=== PATIENT | male | born 1955 | race Caucasian/White ===

== ENCOUNTER 2017-05-06 12:11 | Emergency (ER) | payer MEDICAID ==
[~2017-05-06] VITALS: Ht 175.2 cm; Wt 95.3 kg
[~2017-05-06 12:11] MED LIST: CEPHALEXIN500 M1 PO; LISINOPRIL20 MG PO
[2017-05-06] MEDS ORDERED: PREDNISONE50 MG PO (17:56)
== END 2017-05-06 18:03 | disposition home or self-care (01) ==
LOC: ED 12:11
DX: S16.1XXA Strain of muscle, fascia and tendon at neck level, initial encounter (principal); M54.10 Radiculopathy, site unspecified; M54.2 Cervicalgia; M54.5 Low back pain; F17.200 Nicotine dependence, unspecified, uncomplicated; Z79.899 Other long term (current) drug therapy; W54.1XXA Struck by dog, initial encounter; Y93.89 Activity, other specified; Y92.89 Other specified places as the place of occurrence of the external cause; Y99.8 Other external cause status

== ENCOUNTER → 2017-07-03 | Outpatient (CLI) | payer OTHER ==
[~2017-07-03] MED LIST changes: +PREDNISONE50 MG PO
[2017-07-03 10:50] LABS: HEMATOCRIT 48.6 % (42.0-52.0); HEMOGLOBIN 16.4 g/dl (14.0-18.0); MEAN CELL VOLUME 85.7 fl (80.0-94.0); MEAN CORPUSCULAR HGB 28.9 pg (27.0-31.0); MEAN CORPUSCULAR HGB CONC 33.7 g/dl (33.0-37.0); MEAN PLATELET VOLUME 9.9 fl (9.6-12.3); RED BLOOD COUNT 5.67 10*6/uL (4.50-5.90); RED CELL DISTRI WIDTH 14.5 % (0-14.5); WHITE BLOOD COUNT 7.9 10*3/uL (4.8-10.8)
[2017-07-03 11:17] LABS: BILIRUBIN, TOTAL 0.7 mg/dl (0.2-1.0); CHLORIDE 91 mmol/L (98-107); SODIUM 128 mmol/L (136-145); TOTAL PROTEIN 7.3 gm/dL (6.4-8.2)
[2017-07-03 11:24] LABS: ALBUMIN 3.7 gm/dl (3.1-4.5); ALKALINE PHOSPHATASE 78 U/L (45-117); BUN 5 mg/dl (7-24); CARBON DIOXIDE 29 mmol/L (21-32); CHOLESTEROL 155 mg/dL (<200); EST GLOM FILT AFRICAN AMERICAN > 60 ml/min; GLUCOSE 90 mg/dL (65-99); HDL CHOLESTEROL 62 mg/dl (40-60); LDL CHOLESTEROL 79 mg/dL (9-159); SGOT/AST 29 IU/L (3-35); SGPT/ALT 28 U/L (12-78); TRIGLYCERIDES 71 mg/dl (<150); VLDL CHOLESTEROL 14 mg/dL (6-40)
== END | disposition home or self-care (01) ==
LOC: LAB 10:03
PROVIDERS: Family Medicine
DX: Z12.5 Encounter for screening for malignant neoplasm of prostate (principal); Z01.818 Encounter for other preprocedural examination; M54.2 Cervicalgia; I10 Essential (primary) hypertension; E78.00 Pure hypercholesterolemia, unspecified; E55.9 Vitamin D deficiency, unspecified; F17.200 Nicotine dependence, unspecified, uncomplicated

== ENCOUNTER → 2017-07-11 | Outpatient (CLI) | payer OTHER | END | disposition home or self-care (01) | LOC: LAB 11:08 | DX: E87.1 Hypo-osmolality and hyponatremia (principal); E87.5 Hyperkalemia ==

== ENCOUNTER → 2017-07-23 | Outpatient (CLI) | payer OTHER ==
[2017-07-23 11:42] LABS: ALBUMIN 3.7 gm/dl (3.1-4.5); BUN 7 mg/dl (7-24); CHLORIDE 94 mmol/L (98-107); CREATININE 0.82 mg/dL (0.70-1.30); POTASSIUM 4.3 mmol/L (3.5-5.1); SGOT/AST 19 IU/L (3-35); SGPT/ALT 26 U/L (12-78); SODIUM 127 mmol/L (136-145)
[2017-07-23 11:44] LABS: ALKALINE PHOSPHATASE 76 U/L (45-117); TOTAL PROTEIN 7.3 gm/dL (6.4-8.2)
== END | disposition home or self-care (01) ==
LOC: LAB 10:50
PROVIDERS: Family Medicine
DX: E87.1 Hypo-osmolality and hyponatremia (principal)

== ENCOUNTER → 2017-07-30 | Outpatient (CLI) | payer OTHER ==
[2017-07-30 12:01] LABS: BUN 6 mg/dl (7-24); CHLORIDE 89 mmol/L (98-107); CREATININE 0.78 mg/dL (0.70-1.30); POTASSIUM 4.5 mmol/L (3.5-5.1); SODIUM 125 mmol/L (136-145)
== END | disposition home or self-care (01) ==
LOC: LAB 11:10
PROVIDERS: Family Medicine
DX: E87.1 Hypo-osmolality and hyponatremia (principal)

== ENCOUNTER → 2017-08-14 | Outpatient (CLI) | payer OTHER ==
[2017-08-14 13:25] LABS: BILIRUBIN NEGATIVE (NEGATIVE); BLOOD NEGATIVE (NEGATIVE); CLARITY SL CLOUDY (CLEAR); COLOR YELLOW (YELLOW); GLUCOSE NEGATIVE (NEGATIVE); KETONE TRACE (NEGATIVE); LEUKO ESTERASE NEGATIVE (NEGATIVE); NITRITE NEGATIVE (NEGATIVE); PH 5.5 (5.0-9.0); UROBILINOGEN 0.2 E.U./dl (0.2-1.0)
[2017-08-14 13:41] LABS: BUN 8 mg/dl (7-24); CHLORIDE 92 mmol/L (98-107); CREATININE 0.89 mg/dL (0.70-1.30); POTASSIUM 4.7 mmol/L (3.5-5.1); SODIUM 130 mmol/L (136-145); URIC ACID 3.1 mg/dL (3.5-7.2)
[2017-08-14 13:47] LABS: BACTERIA TRACE
[2017-08-14 13:48] LABS: ETHYL ALCOHOL < 3.0 mg/dl (<3)
== END | disposition home or self-care (01) ==
LOC: LAB 12:35
PROVIDERS: Internal Medicine Nephrology
DX: E87.1 Hypo-osmolality and hyponatremia (principal)

== ENCOUNTER → 2017-08-26 | Outpatient (CLI) | payer OTHER ==
[2017-08-26 12:18] LABS: ALBUMIN 3.8 gm/dl (3.1-4.5); BUN 4 mg/dl (7-24); CHLORIDE 90 mmol/L (98-107); CREATININE 0.83 mg/dL (0.70-1.30); PHOSPHOROUS 3.2 mg/dL (2.5-4.9); POTASSIUM 4.5 mmol/L (3.5-5.1); SODIUM 127 mmol/L (136-145)
== END | disposition home or self-care (01) ==
LOC: LAB 11:24
PROVIDERS: Internal Medicine Nephrology
DX: E87.1 Hypo-osmolality and hyponatremia (principal)

== ENCOUNTER → 2017-09-08 | Outpatient (CLI) | payer OTHER ==
[2017-09-08 12:59] LABS: ALBUMIN 3.8 gm/dl (3.1-4.5); BUN 5 mg/dl (7-24); CHLORIDE 90 mmol/L (98-107); CREATININE 0.73 mg/dL (0.70-1.30); PHOSPHOROUS 3.4 mg/dL (2.5-4.9); POTASSIUM 4.2 mmol/L (3.5-5.1); SODIUM 126 mmol/L (136-145)
== END | disposition home or self-care (01) ==
LOC: LAB 11:58
PROVIDERS: Internal Medicine Nephrology
DX: E87.1 Hypo-osmolality and hyponatremia (principal)

== ENCOUNTER → 2017-09-18 | Outpatient (CLI) | payer OTHER ==
[2017-09-18 13:08] LABS: ALBUMIN 3.9 gm/dl (3.1-4.5); BUN 6 mg/dl (7-24); CHLORIDE 92 mmol/L (98-107); CREATININE 0.81 mg/dL (0.70-1.30); PHOSPHOROUS 3.6 mg/dL (2.5-4.9); POTASSIUM 4.4 mmol/L (3.5-5.1); SODIUM 129 mmol/L (136-145)
== END | disposition home or self-care (01) ==
LOC: LAB 12:18
PROVIDERS: Internal Medicine Nephrology
DX: E87.1 Hypo-osmolality and hyponatremia (principal)

== ENCOUNTER → 2017-09-23 | Outpatient (CLI) | payer OTHER ==
[2017-09-23 10:10] LABS: ALBUMIN 3.7 gm/dl (3.1-4.5); BUN 5 mg/dl (7-24); CHLORIDE 92 mmol/L (98-107); CREATININE 0.75 mg/dL (0.70-1.30); PHOSPHOROUS 3.2 mg/dL (2.5-4.9); POTASSIUM 4.5 mmol/L (3.5-5.1); SODIUM 127 mmol/L (136-145)
== END | disposition home or self-care (01) ==
LOC: LAB 08:56
PROVIDERS: Internal Medicine Nephrology
DX: E87.1 Hypo-osmolality and hyponatremia (principal)

== ENCOUNTER → 2017-10-02 | Outpatient (CLI) | payer OTHER ==
[2017-10-02 13:21] LABS: ALBUMIN 3.7 gm/dl (3.1-4.5); BUN 7 mg/dl (7-24); CHLORIDE 95 mmol/L (98-107); CREATININE 0.79 mg/dL (0.70-1.30); PHOSPHOROUS 4.1 mg/dL (2.5-4.9); POTASSIUM 4.3 mmol/L (3.5-5.1); SODIUM 132 mmol/L (136-145)
== END ==
LOC: LAB 12:08
PROVIDERS: Internal Medicine Nephrology
DX: E87.1 Hypo-osmolality and hyponatremia (principal)

== ENCOUNTER → 2017-10-09 | Outpatient (CLI) | payer OTHER ==
[2017-10-09 14:15] LABS: ALBUMIN 3.7 gm/dl (3.1-4.5); BUN 10 mg/dl (7-24); CHLORIDE 96 mmol/L (98-107); CREATININE 0.97 mg/dL (0.70-1.30); PHOSPHOROUS 3.6 mg/dL (2.5-4.9); POTASSIUM 4.3 mmol/L (3.5-5.1); SODIUM 131 mmol/L (136-145)
== END | disposition home or self-care (01) ==
LOC: LAB 13:30
PROVIDERS: Internal Medicine Nephrology
DX: E87.1 Hypo-osmolality and hyponatremia (principal)

== ENCOUNTER → 2017-12-09 | Outpatient (CLI) | payer OTHER ==
[2017-12-09 10:46] LABS: HEMATOCRIT 48.6 % (42.0-52.0); HEMOGLOBIN 16.8 g/dl (14.0-18.0); MEAN CELL VOLUME 87.7 fl (80.0-94.0); MEAN CORPUSCULAR HGB 30.3 pg (27.0-31.0); MEAN CORPUSCULAR HGB CONC 34.6 g/dl (33.0-37.0); MEAN PLATELET VOLUME 9.4 fl (9.6-12.3); RED BLOOD COUNT 5.54 10*6/uL (4.50-5.90); RED CELL DISTRI WIDTH 13.3 % (0-14.5); WHITE BLOOD COUNT 8.7 10*3/uL (4.8-10.8)
[2017-12-09 11:16] LABS: ALBUMIN 3.9 gm/dl (3.1-4.5); ALKALINE PHOSPHATASE 95 U/L (45-117); BUN 6 mg/dl (7-24); CHLORIDE 93 mmol/L (98-107); CHOLESTEROL 158 mg/dL (<200); CREATININE 0.86 mg/dL (0.70-1.30); HDL CHOLESTEROL 59 mg/dl (40-60); LDL CHOLESTEROL 77 mg/dL (9-159); POTASSIUM 4.5 mmol/L (3.5-5.1); SGOT/AST 17 IU/L (3-35); SGPT/ALT 26 U/L (12-78); SODIUM 128 mmol/L (136-145); TOTAL PROTEIN 7.5 gm/dL (6.4-8.2); TRIGLYCERIDES 110 mg/dl (<150); VLDL CHOLESTEROL 22 mg/dL (6-40)
[2017-12-09 11:18] LABS: ACT PARTIAL THROMBO TIME 27.4 SECONDS (20.8-31.5)
== END | disposition home or self-care (01) ==
LOC: LAB 10:07
PROVIDERS: Family Medicine
DX: Z01.812 Encounter for preprocedural laboratory examination (principal); Z13.220 Encounter for screening for lipoid disorders; J44.9 Chronic obstructive pulmonary disease, unspecified; E87.1 Hypo-osmolality and hyponatremia; I10 Essential (primary) hypertension; M47.892 Other spondylosis, cervical region; F10.20 Alcohol dependence, uncomplicated; R79.1 Abnormal coagulation profile

== ENCOUNTER → 2017-12-19 | Outpatient (CLI) | payer OTHER ==
[2017-12-19 12:54] LABS: ACT PARTIAL THROMBO TIME 26.3 SECONDS (20.8-31.5)
[2017-12-19 13:32] LABS: ALBUMIN 4.2 gm/dl (3.1-4.5); BUN 7 mg/dl (7-24); CHLORIDE 99 mmol/L (98-107); CREATININE 0.77 mg/dL (0.70-1.30); POTASSIUM 4.5 mmol/L (3.5-5.1); SGOT/AST 21 IU/L (3-35); SGPT/ALT 28 U/L (12-78); SODIUM 134 mmol/L (136-145); TOTAL PROTEIN 7.8 gm/dL (6.4-8.2)
[2017-12-19 13:35] LABS: ALKALINE PHOSPHATASE 85 U/L (45-117)
== END | disposition home or self-care (01) ==
LOC: LAB 11:57
PROVIDERS: Family Medicine
DX: Z01.818 Encounter for other preprocedural examination (principal); E87.1 Hypo-osmolality and hyponatremia

== ENCOUNTER → 2018-03-03 | Outpatient (CLI) | payer OTHER | END | disposition home or self-care (01) | LOC: RAD 10:14 | DX: M48.02 Spinal stenosis, cervical region (principal); Z98.1 Arthrodesis status ==

== ENCOUNTER → 2018-05-13 | Outpatient (CLI) | payer OTHER | END | disposition home or self-care (01) | LOC: RAD 10:32 | DX: Z09 Encounter for follow-up examination after completed treatment for conditions other than malignant neoplasm (principal); M53.82 Other specified dorsopathies, cervical region ==

== ENCOUNTER 2018-12-03 10:39 | Emergency (ER) | payer MEDICARE, MEDICAID ==
[~2018-12-03] VITALS: Ht 175.2 cm; Wt 90.7 kg
--- NOTE | ~2018-12-03 | EKG ---
[place], [place] ELECTROCARDIOGRAM REPORT NAME: MARY KATE NARAYAN UNIT #: [id number] ROOM: DOCTOR: EPIPHANY DRAFT REPORT BIRTHDATE: [birth year] [facility] Test Date: 2018-12-03 Test Time: 14:29:29 Pat Name: MARY KATE NARAYAN Department: ER Room: Gender: M Plumbing Engineer: EKG.TN : 1955 Requested By: ALISTAIR CARTER Order Number: [id number] Reading MD: Christiano Ibrahim MD Measurements Intervals [place] Rate: 62 P: 59 ID: [id number] QRS: 37 QRSD: 109 T: 9 QT: 424 QTc: 431 Interpretive Statements Sinus rhythm Inferior infarct, age indeterminate, cannot be ruled out Electronically Signed On 12-03-2018 17:33:38 PST by Christiano Ibrahim MD CM:EKGRPT:ELECTROCARDIOGRAM REPORT [id number] ALISTAIR PRAKASH DRAFT REPORT ALISTAIR MUÑIZ
[2018-12-03 11:59] LABS: BASO # 0.1 10*3/uL (0.0-0.1); BASO % 0.8 % (0.0-1.0); EOS # 0.2 10*3/uL (0.0-0.4); EOS % 1.3 % (1.0-4.0); HEMATOCRIT 47.5 % (42.0-52.0); HEMOGLOBIN 16.4 g/dl (14.0-18.0); LYMPH # 1.4 10*3/uL (1.3-4.4); LYMPH % 12.9 % (27.0-41.0); MEAN CORPUSCULAR HGB 30.7 pg (27.0-31.0); MEAN CORPUSCULAR HGB CONC 34.5 g/dl (33.0-37.0); MEAN PLATELET VOLUME 9.1 fl (9.6-12.3); MONO # 0.8 10*3/uL (0.1-1.0); MONO % 7.5 % (3.0-9.0); NEUT # 8.6 10*3/uL (2.3-7.9); NEUT % 77.1 % (47.0-73.0); PLATELET COUNT AUTOMATED 285 10*3/uL (130-400); RED BLOOD COUNT 5.34 10*6/uL (4.50-5.90); WHITE BLOOD COUNT 11.2 10*3/uL (4.8-10.8)
[2018-12-03 12:08] LABS: INTERNATIONAL NORM RATIO 0.9 (2.0-3.5)
[2018-12-03 12:13] LABS: ALBUMIN 3.8 gm/dl (3.1-4.5); ALKALINE PHOSPHATASE 80 U/L (45-117); BUN 3 mg/dl (7-24); CHLORIDE 94 mmol/L (98-107); CREATININE 0.82 mg/dL (0.70-1.30); LIPASE 81 U/L (73-393); POTASSIUM 3.9 mmol/L (3.5-5.1); SGOT/AST 14 IU/L (3-35); SGPT/ALT 23 U/L (12-78); SODIUM 131 mmol/L (136-145); TOTAL PROTEIN 7.7 gm/dL (6.4-8.2)
[2018-12-03 13:25] LABS: BILIRUBIN NEGATIVE (NEGATIVE); BLOOD NEGATIVE (NEGATIVE); CLARITY SL CLOUDY (CLEAR); COLOR YELLOW (YELLOW); GLUCOSE NEGATIVE (NEGATIVE); KETONE NEGATIVE (NEGATIVE); LEUKO ESTERASE NEGATIVE (NEGATIVE); NITRITE NEGATIVE (NEGATIVE); SPECIFIC GRAVITY 1.015 (1.005-1.030); UROBILINOGEN 0.2 E.U./dl (0.2-1.0)
[2018-12-03 13:54] LABS: BACTERIA TRACE
[2018-12-03] MEDS ORDERED: NEXIUM40 MG PO (14:03)
== END 2018-12-03 15:18 | disposition home or self-care (01) ==
LOC: ED 10:39
PROVIDERS: Physician Assistant
DX: K21.9 Gastro-esophageal reflux disease without esophagitis (principal); Z79.899 Other long term (current) drug therapy

== ENCOUNTER → 2019-08-05 | Outpatient (CLI) | payer MEDICARE, MEDICAID ==
[~2019-08-05] MED LIST changes: +NEXIUM40 MG PO
[2019-08-05 10:05] LABS: HEMATOCRIT 45.2 % (42.0-52.0); HEMOGLOBIN 15.4 g/dl (14.0-18.0); MEAN CELL VOLUME 87.8 fl (80.0-94.0); MEAN CORPUSCULAR HGB 29.9 pg (27.0-31.0); MEAN CORPUSCULAR HGB CONC 34.1 g/dl (33.0-37.0); MEAN PLATELET VOLUME 9.4 fl (9.6-12.3); RED BLOOD COUNT 5.15 10*6/uL (4.50-5.90); WHITE BLOOD COUNT 11.5 10*3/uL (4.8-10.8)
[2019-08-05 10:41] LABS: ALKALINE PHOSPHATASE 68 U/L (45-117); BUN 9 mg/dl (7-24); CHLORIDE 90 mmol/L (98-107); CHOLESTEROL 178 mg/dL (<200); HDL CHOLESTEROL 84 mg/dl (40-60); LDL CHOLESTEROL 84 mg/dL (9-159); POTASSIUM 3.8 mmol/L (3.5-5.1); SGOT/AST 20 IU/L (3-35); SODIUM 127 mmol/L (136-145); TOTAL PROTEIN 7.8 gm/dL (6.4-8.2); TRIGLYCERIDES 52 mg/dl (<150); VLDL CHOLESTEROL 10 mg/dL (6-40)
[2019-08-05 10:49] LABS: SGPT/ALT 28 U/L (12-78)
== END | disposition home or self-care (01) ==
LOC: LAB 09:41
PROVIDERS: Family Medicine
DX: E78.00 Pure hypercholesterolemia, unspecified (principal); I10 Essential (primary) hypertension; M54.5 Low back pain

== ENCOUNTER 2022-04-22 18:46 | Inpatient (IN) | payer MEDICARE, MEDICAID ==
[~2022-04-22] VITALS: Ht 177.8 cm; Wt 97.1 kg
[2022-04-22 19:00] VITALS: BP 85/44
[2022-04-22 19:12] LABS: BASO # 0.1 10*3/uL (0.0-0.1); BASO % 0.7 % (0.0-1.0); EOS # 0.1 10*3/uL (0.0-0.4); EOS % 0.7 % (1.0-4.0); HEMATOCRIT 38.1 % (42.0-52.0); LYMPH # 1.3 10*3/uL (1.3-4.4); MEAN CELL VOLUME 83.2 fl (80.0-94.0); MEAN CORPUSCULAR HGB 29.5 pg (27.0-31.0); MEAN CORPUSCULAR HGB CONC 35.4 g/dl (33.0-37.0); MEAN PLATELET VOLUME 8.7 fl (9.6-12.3); MONO # 0.8 10*3/uL (0.1-1.0); MONO % 7.5 % (3.0-9.0); NEUT % 77.5 % (47.0-73.0); PLATELET COUNT AUTOMATED 229 10*3/uL (130-400); RED BLOOD COUNT 4.58 10*6/uL (4.50-5.90); RED CELL DISTRI WIDTH 13.3 % (0-14.5); WHITE BLOOD COUNT 10.3 10*3/uL (4.8-10.8)
[2022-04-22 19:27] LABS: ALKALINE PHOSPHATASE 60 U/L (45-117); BUN 6 mg/dl (7-24); CHLORIDE 80 mmol/L (98-107); CREATININE 0.51 mg/dL (0.70-1.30); POTASSIUM 3.3 mmol/L (3.5-5.1); SGOT/AST 19 IU/L (3-35); SGPT/ALT 25 U/L (12-78); TOTAL PROTEIN 5.7 gm/dL (6.4-8.2)
[2022-04-22 19:37] LABS: SODIUM 113 mmol/L (136-145)
[2022-04-22 20:00] VITALS: BP 136/76
[2022-04-22 20:51] LABS: BILIRUBIN Negative (Negative); BLOOD Negative (Negative); CLARITY Clear (Clear); COLOR Yellow (Yellow); GLUCOSE Negative (Negative); KETONE Negative (Negative); LEUKO ESTERASE Negative (Negative); NITRITE Negative (Negative); PH 5.5 (4.5-8.0); SPECIFIC GRAVITY <= 1.005 (1.001-1.030); UROBILINOGEN 0.2 E.U./dl (0.0-1.0)
[2022-04-22 20:54] LABS: URINE AMPHETAMINES < 1000 (1000ng/ml); URINE BARBITURATES < 200 (200ng/ml); URINE BENZODIAZEPINES < 200 (200ng/ml); URINE CANNABINOIDS (THC) > 50 (50ng/ml); URINE COCAINE < 300 (300ng/ml); URINE METHADONE < 300 (300ng/ml); URINE OPIATES < 300 (300ng/ml)
[2022-04-22 20:55] LABS: URINE PHENCYCLIDINE < 25 (25ng/ml)
[2022-04-22 21:00] LABS: BACTERIA TRACE; EPITHELIAL CELLS 0-2; WBC 0-2 wbc/hpf (0-5)
[2022-04-22 22:48] LABS: URINE CHLORIDE, RANDOM < 10 mmol/L
[2022-04-22 22:53] LABS: BUN 4 mg/dl (7-24); CHLORIDE 85 mmol/L (98-107); CREATININE 0.52 mg/dL (0.70-1.30); POTASSIUM 3.3 mmol/L (3.5-5.1)
[2022-04-22 22:55] LABS: SODIUM 119 mmol/L (136-145)
[2022-04-23 00:14] VITALS: BP 129/71
[2022-04-23 06:31] LABS: BASO # 0.1 10*3/uL (0.0-0.1); BASO % 0.6 % (0.0-1.0); EOS # 0.1 10*3/uL (0.0-0.4); MEAN CELL VOLUME 83.7 fl (80.0-94.0); MEAN CORPUSCULAR HGB 29.8 pg (27.0-31.0); MEAN CORPUSCULAR HGB CONC 35.6 g/dl (33.0-37.0); MEAN PLATELET VOLUME 9.4 fl (9.6-12.3); MONO # 0.8 10*3/uL (0.1-1.0); MONO % 10.2 % (3.0-9.0); NEUT # 6.2 10*3/uL (2.3-7.9); NEUT % 75.6 % (47.0-73.0); PLATELET COUNT AUTOMATED 251 10*3/uL (130-400); RED CELL DISTRI WIDTH 13.3 % (0-14.5); WHITE BLOOD COUNT 8.2 10*3/uL (4.8-10.8)
[2022-04-23 07:57] VITALS: BP 155/68
[2022-04-23 08:47] LABS: BUN 4 mg/dl (7-24); CHLORIDE 93 mmol/L (98-107); CREATININE 0.56 mg/dL (0.70-1.30); POTASSIUM 4.2 mmol/L (3.5-5.1); SODIUM 123 mmol/L (136-145)
[2022-04-23 12:00] VITALS: BP 140/50; BP 144/71
[2022-04-23] MEDS ORDERED: NORVASC10 MG PO (13:50)
[2022-04-23] MEDS ORDERED: COZAAR100 MG PO (13:50)
[2022-04-23 16:00] VITALS: BP 139/77
[2022-04-23 20:00] VITALS: BP 135/67
[2022-04-23 20:14] LABS: ALKALINE PHOSPHATASE 79 U/L (45-117); BUN 5 mg/dl (7-24); CHLORIDE 91 mmol/L (98-107); CREATININE 0.61 mg/dL (0.70-1.30); POTASSIUM 3.6 mmol/L (3.5-5.1); SGOT/AST 37 IU/L (3-35); SGPT/ALT 32 U/L (12-78); SODIUM 123 mmol/L (136-145); TOTAL PROTEIN 6.6 gm/dL (6.4-8.2)
[2022-04-24] VITALS: BP 133/87
[2022-04-24 05:41] LABS: BUN 4 mg/dl (7-24); CHLORIDE 90 mmol/L (98-107); CREATININE 0.47 mg/dL (0.70-1.30); POTASSIUM 3.5 mmol/L (3.5-5.1); SODIUM 123 mmol/L (136-145)
[2022-04-24 08:00] VITALS: BP 136/76
[2022-04-24 11:59] VITALS: BP 166/82
[2022-04-24 14:43] LABS: BUN 4 mg/dl (7-24); CHLORIDE 87 mmol/L (98-107); CREATININE 0.87 mg/dL (0.70-1.30); POTASSIUM 3.5 mmol/L (3.5-5.1); SODIUM 122 mmol/L (136-145)
[2022-04-24 16:00] VITALS: BP 128/75
[2022-04-24 20:00] VITALS: BP 118/92
[2022-04-25] VITALS: BP 152/86
[2022-04-25 08:00] VITALS: BP 122/76
[2022-04-25 08:44] LABS: BASO % 0.4 % (0.0-1.0); EOS # 0.1 10*3/uL (0.0-0.4); EOS % 1.1 % (1.0-4.0); LYMPH % 10.1 % (27.0-41.0); MEAN CELL VOLUME 83.7 fl (80.0-94.0); MEAN CORPUSCULAR HGB 29.5 pg (27.0-31.0); MEAN CORPUSCULAR HGB CONC 35.2 g/dl (33.0-37.0); MEAN PLATELET VOLUME 9.3 fl (9.6-12.3); MONO # 0.8 10*3/uL (0.1-1.0); MONO % 8.5 % (3.0-9.0); NEUT # 7.7 10*3/uL (2.3-7.9); NEUT % 79.3 % (47.0-73.0); PLATELET COUNT AUTOMATED 249 10*3/uL (130-400); RED BLOOD COUNT 5.02 10*6/uL (4.50-5.90); RED CELL DISTRI WIDTH 13.4 % (0-14.5); WHITE BLOOD COUNT 9.7 10*3/uL (4.8-10.8)
[2022-04-25 09:05] LABS: BUN 5 mg/dl (7-24); CHLORIDE 92 mmol/L (98-107); CREATININE 0.51 mg/dL (0.70-1.30); POTASSIUM 3.8 mmol/L (3.5-5.1); SODIUM 124 mmol/L (136-145)
[2022-04-25 12:00] VITALS: BP 145/87
[2022-04-25 20:00] VITALS: BP 154/83
[2022-04-26] VITALS: BP 154/91
[2022-04-26 05:38] LABS: BUN 11 mg/dl (7-24); CHLORIDE 92 mmol/L (98-107); POTASSIUM 3.4 mmol/L (3.5-5.1); SODIUM 125 mmol/L (136-145)
[2022-04-26 08:00] VITALS: BP 126/58
[2022-04-26] MEDS ORDERED: ATORVASTATIN CA20 M1 PO (08:17)
[2022-04-26] MEDS ORDERED: URE-NA15 GM PO (08:17)
[2022-04-26 12:00] VITALS: BP 137/82
== END 2022-04-26 15:40 | disposition home or self-care (01) | DRG 641 ==
LOC: ED 18:46 → EDHOLD 21:46 → 4E 21:46 → EDHOLD 21:47 → 5E 23:08 → EDHOLD 23:19 → 4E 23:34
PROVIDERS: Internal Medicine; Internal Medicine Nephrology; ADMIT Internal Medicine; ATTEND Internal Medicine
DX: E87.1 Hypo-osmolality and hyponatremia (principal); E87.2 Acidosis; I10 Essential (primary) hypertension; R29.6 Repeated falls; K21.9 Gastro-esophageal reflux disease without esophagitis; F10.20 Alcohol dependence, uncomplicated; E87.6 Hypokalemia; R74.01 Elevation of levels of liver transaminase levels; Z86.73 Personal history of transient ischemic attack (TIA), and cerebral infarction without residual deficits

== ENCOUNTER → 2022-04-30 | Outpatient (CLI) | payer MEDICARE, MEDICAID ==
[~2022-04-30] MED LIST changes: +ATORVASTATIN CA20 M1 PO; +COZAAR100 MG PO; +NORVASC10 MG PO; +URE-NA15 GM PO
[2022-04-30 12:01] LABS: ALKALINE PHOSPHATASE 76 U/L (45-117); BUN 26 mg/dl (7-24); CHLORIDE 95 mmol/L (98-107); CREATININE 0.69 mg/dL (0.70-1.30); SGOT/AST 19 IU/L (3-35); SGPT/ALT 35 U/L (12-78); SODIUM 128 mmol/L (136-145); TOTAL PROTEIN 6.8 gm/dL (6.4-8.2)
== END ==
LOC: LAB 10:53
PROVIDERS: ATTEND Internal Medicine Nephrology
DX: E87.1 Hypo-osmolality and hyponatremia (principal)

== ENCOUNTER → 2022-05-13 | Outpatient (CLI) | payer MEDICARE, MEDICAID ==
[2022-05-13 12:54] LABS: BUN 6 mg/dl (7-24)
[2022-05-13 12:59] LABS: CHLORIDE 96 mmol/L (98-107); POTASSIUM 4.1 mmol/L (3.5-5.1); SODIUM 130 mmol/L (136-145)
== END | disposition home or self-care (01) ==
LOC: LAB 12:06
PROVIDERS: ATTEND Internal Medicine Nephrology
DX: E87.1 Hypo-osmolality and hyponatremia (principal)

== ENCOUNTER → 2022-06-10 | Outpatient (CLI) | payer MEDICARE, MEDICAID ==
[2022-06-10 10:20] LABS: HEMATOCRIT 43.5 % (42.0-52.0); MEAN CELL VOLUME 85.1 fl (80.0-94.0); MEAN CORPUSCULAR HGB 28.2 pg (27.0-31.0); MEAN CORPUSCULAR HGB CONC 33.1 g/dl (33.0-37.0); MEAN PLATELET VOLUME 8.9 fl (9.6-12.3); RED BLOOD COUNT 5.11 10*6/uL (4.50-5.90); RED CELL DISTRI WIDTH 13.8 % (0-14.5); WHITE BLOOD COUNT 11.5 10*3/uL (4.8-10.8)
[2022-06-10 10:56] LABS: ALKALINE PHOSPHATASE 97 U/L (45-117); BUN 5 mg/dl (7-24); CHLORIDE 93 mmol/L (98-107); CHOLESTEROL 159 mg/dL (<200); CREATININE 0.63 mg/dL (0.70-1.30); LDL CHOLESTEROL 77 mg/dL (9-159); POTASSIUM 4.2 mmol/L (3.5-5.1); SGOT/AST 22 IU/L (3-35); SGPT/ALT 20 U/L (12-78); SODIUM 130 mmol/L (136-145); TRIGLYCERIDES 59 mg/dl (<150)
== END ==
LOC: LAB 09:51
PROVIDERS: Family Medicine; ATTEND Internal Medicine Nephrology
DX: I10 Essential (primary) hypertension (principal); E87.1 Hypo-osmolality and hyponatremia; E78.00 Pure hypercholesterolemia, unspecified; E55.9 Vitamin D deficiency, unspecified; Z12.5 Encounter for screening for malignant neoplasm of prostate

== ENCOUNTER → 2022-06-17 | Outpatient (CLI) | payer MEDICARE, MEDICAID ==
[2022-06-20 20:07] LABS: FREE PSA 0.809 ng/mL (.)
== END | disposition home or self-care (01) ==
LOC: LAB 09:19
PROVIDERS: ATTEND Family Medicine
DX: R97.20 Elevated prostate specific antigen [PSA] (principal)

== ENCOUNTER → 2022-07-31 | Outpatient (CLI) | payer MEDICARE, MEDICAID ==
[2022-07-31 13:50] LABS: ALKALINE PHOSPHATASE 100 U/L (45-117); BUN 4 mg/dl (7-24); CHLORIDE 97 mmol/L (98-107); CREATININE 0.91 mg/dL (0.70-1.30); SGOT/AST 22 IU/L (3-35); SGPT/ALT 21 U/L (12-78); SODIUM 135 mmol/L (136-145); TOTAL PROTEIN 7.4 gm/dL (6.4-8.2)
== END | disposition home or self-care (01) ==
LOC: LAB 12:38
PROVIDERS: ATTEND Internal Medicine Nephrology
DX: E87.1 Hypo-osmolality and hyponatremia (principal)

== ENCOUNTER → 2022-12-03 | Outpatient (CLI) | payer MEDICARE, MEDICAID ==
[2022-12-03 13:37] LABS: ALKALINE PHOSPHATASE 97 U/L (46-116); CHLORIDE 87 mmol/L (98-107); SGPT/ALT 26 U/L (10-49); TOTAL PROTEIN 7.2 gm/dL (6.0-8.0)
[2022-12-03 13:44] LABS: BUN < 5 mg/dl (9-23)
== END | disposition home or self-care (01) ==
LOC: LAB 12:42
PROVIDERS: ATTEND Internal Medicine Nephrology
DX: E87.1 Hypo-osmolality and hyponatremia (principal)

== ENCOUNTER → 2023-02-11 | Outpatient (CLI) | payer MEDICARE, MEDICAID ==
[2023-02-11 13:34] LABS: ALKALINE PHOSPHATASE 99 U/L (46-116); BUN 5 mg/dl (9-23); CHLORIDE 93 mmol/L (98-107); POTASSIUM 4.6 mmol/L (3.4-5.1); SGPT/ALT 16 U/L (10-49); TOTAL PROTEIN 7.3 gm/dL (6.0-8.0)
== END | disposition home or self-care (01) ==
LOC: LAB 12:52
PROVIDERS: ATTEND Internal Medicine Nephrology
DX: E87.1 Hypo-osmolality and hyponatremia (principal)

== ENCOUNTER 2023-06-03 12:14 | Emergency (ER) | payer MEDICARE, MEDICAID ==
[~2023-06-03] VITALS: Ht 175.2 cm; Wt 90.7 kg
== END 2023-06-03 14:21 | disposition home or self-care (01) ==
LOC: ED 12:14
DX: M16.11 Unilateral primary osteoarthritis, right hip (principal); I10 Essential (primary) hypertension

== ENCOUNTER → 2023-08-06 | Outpatient (CLI) | payer MEDICARE, MEDICAID ==
[2023-08-06 10:19] LABS: ALKALINE PHOSPHATASE 84 U/L (46-116); CHLORIDE 94 mmol/L (98-107); POTASSIUM 4.3 mmol/L (3.4-5.1); SGPT/ALT 18 U/L (10-49)
[2023-08-06 10:24] LABS: BUN < 5 mg/dl (9-23)
== END | disposition home or self-care (01) ==
LOC: LAB 09:24
PROVIDERS: ATTEND Internal Medicine Nephrology
DX: E87.1 Hypo-osmolality and hyponatremia (principal)

== ENCOUNTER → 2024-03-27 | Outpatient (CLI) | payer MEDICARE, MEDICAID ==
[2024-03-27 10:49] LABS: HEMATOCRIT 45.1 % (42.0-52.0); MEAN CELL VOLUME 85.7 fl (80.0-94.0); MEAN CORPUSCULAR HGB 28.3 pg (27.0-31.0); MEAN PLATELET VOLUME 9.1 fl (9.6-12.3); RED BLOOD COUNT 5.26 10*6/uL (4.50-5.90); RED CELL DISTRI WIDTH 15.9 % (0-14.5); WHITE BLOOD COUNT 8.1 10*3/uL (4.8-10.8)
[2024-03-27 11:19] LABS: ALKALINE PHOSPHATASE 90 U/L (46-116); CHLORIDE 93 mmol/L (98-107); CHOLESTEROL 153 mg/dL (<200); LDL CHOLESTEROL 79 mg/dL (9-159); POTASSIUM 4.3 mmol/L (3.4-5.1); SGPT/ALT 14 U/L (5-49); TRIGLYCERIDES 49 mg/dl (<150)
[2024-03-27 11:20] LABS: BUN < 5 mg/dl (9-23)
== END ==
LOC: LAB 10:28
PROVIDERS: ATTEND Family Medicine
DX: R97.20 Elevated prostate specific antigen [PSA] (principal); E78.5 Hyperlipidemia, unspecified; I10 Essential (primary) hypertension

== ENCOUNTER 2025-03-19 19:26 | Emergency (ER) | payer MEDICARE, MEDICAID ==
[2025-03-19] MEDS ORDERED: Tdap Vaccine 0.5 ML SYR (Adult Vaccine) IM ONE (19:35)
[2025-03-19] MEDS ORDERED: SODIUM CHLORIDE 0.9% 1,000 ML IV ONE ×2 (19:35→22:05)
[2025-03-19 20:01] LABS: BILIRUBIN Negative (Negative); BLOOD 1+ (Negative); CLARITY Clear (Clear); COLOR Yellow (Yellow); GLUCOSE Negative (Negative); KETONE Trace (Negative); LEUKO ESTERASE Negative (Negative); NITRITE Negative (Negative); SPECIFIC GRAVITY 1.015 (1.001-1.030); UROBILINOGEN 0.2 E.U./dl (0.0-1.0)
[2025-03-19 20:08] LABS: HEMATOCRIT 45.5 % (42.0-52.0); MANUAL DIFF REFLEX YES; MEAN CELL VOLUME 84.1 fl (80.0-94.0); MEAN CORPUSCULAR HGB 28.5 pg (27.0-31.0); MEAN CORPUSCULAR HGB CONC 33.8 g/dl (33.0-37.0); MEAN PLATELET VOLUME 9.5 fl (9.6-12.3); PLATELET COUNT AUTOMATED 247 10*3/uL (130-400); RED BLOOD COUNT 5.41 10*6/uL (4.50-5.90); RED CELL DISTRI WIDTH 13.7 % (0-14.5); WHITE BLOOD COUNT 29.9 10*3/uL (4.8-10.8)
[2025-03-19 20:12] LABS: URINE AMPHETAMINES Negative (1000ng/ml); URINE BARBITURATES Negative (200ng/ml); URINE BENZODIAZEPINES Negative (200ng/ml); URINE CANNABINOIDS (THC) Positive (50ng/ml); URINE COCAINE Negative (300ng/ml); URINE METHADONE Negative (300ng/ml); URINE OPIATES Positive (300ng/ml); URINE PHENCYCLIDINE Negative (25ng/ml)
[2025-03-19 20:19] LABS: ACT PARTIAL THROMBO TIME 27.2 SECONDS (20.0-32.1)
[2025-03-19 20:27] LABS: MUCOUS 1+
[2025-03-19 20:36] LABS: BURR CELLS FEW; PLATELET SUFFICIENCY NORMAL (NORMAL); TOTAL CELLS COUNTED 100 #CELLS
[2025-03-19 20:37] LABS: OVALOCYTES FEW
[2025-03-19 20:45] LABS: ALKALINE PHOSPHATASE 85 U/L (46-116); BUN 9 mg/dl (9-23); CHLORIDE 81 mmol/L (98-107); ETHYL ALCOHOL 74.3 mg/dl (<3); LIPASE 23 U/L (12-53); POTASSIUM 3.4 mmol/L (3.4-5.1); SGPT/ALT 34 U/L (5-49); TOTAL PROTEIN 6.9 gm/dL (6.0-8.0)
[2025-03-19 20:47] LABS: CPK 1488 U/L (34-171)
[2025-03-19] MEDS ORDERED: DEXTROSE 10% 1,000 ML IV SCH (20:50)
== END 2025-03-19 21:21 | disposition short-term general hospital (02) ==
LOC: ED 19:26
PROVIDERS: Internal Medicine
DX: S70.212A Abrasion, left hip, initial encounter (principal); S70.211A Abrasion, right hip, initial encounter; S80.212A Abrasion, left knee, initial encounter; S80.211A Abrasion, right knee, initial encounter; T68.XXXA Hypothermia, initial encounter; M25.512 Pain in left shoulder; M54.50 Low back pain, unspecified; F10.10 Alcohol abuse, uncomplicated; E16.2 Hypoglycemia, unspecified; R79.89 Other specified abnormal findings of blood chemistry; F19.10 Other psychoactive substance abuse, uncomplicated; M62.82 Rhabdomyolysis; E87.20 Acidosis, unspecified; E87.1 Hypo-osmolality and hyponatremia; X58.XXXA Exposure to other specified factors, initial encounter; Z79.899 Other long term (current) drug therapy; Y93.89 Activity, other specified; Y92.89 Other specified places as the place of occurrence of the external cause; Y99.8 Other external cause status; Y90.5 Blood alcohol level of 100-119 mg/100 ml

== ENCOUNTER → 2025-04-28 | Outpatient (CLI) | payer OTHER, MEDICAID ==
[~2025-04-28] MED LIST changes: +AMLODIPINE BESYL5 MG PO; +B-121000 MC1 PO; +IRON325 M1 PO; +MELATONIN3 MG PO; +NATURE'S BLEND F1 MG PO; +SODIUM CHLORI1000 MG PO; +THIAMINE HCL100 MG PO; +TRAZODONE50 MG PO
[2025-04-28 09:46] LABS: BASO # 0.1 10*3/uL (0.0-0.1); BASO % 0.7 % (0.0-1.0); EOS # 0.1 10*3/uL (0.0-0.4); EOS % 1.5 % (1.0-4.0); HEMATOCRIT 31.5 % (42.0-52.0); MEAN CELL VOLUME 88.7 fl (80.0-94.0); MEAN CORPUSCULAR HGB 28.5 pg (27.0-31.0); MEAN CORPUSCULAR HGB CONC 32.1 g/dl (33.0-37.0); MEAN PLATELET VOLUME 8.6 fl (9.6-12.3); MONO # 0.6 10*3/uL (0.1-1.0); MONO % 7.5 % (3.0-9.0); NEUT # 5.9 10*3/uL (2.3-7.9); NEUT % 73.6 % (47.0-73.0); PLATELET COUNT AUTOMATED 218 10*3/uL (130-400); RED BLOOD COUNT 3.55 10*6/uL (4.50-5.90); RED CELL DISTRI WIDTH 15.1 % (0-14.5)
[2025-04-28 10:35] LABS: ALKALINE PHOSPHATASE 69 U/L (46-116); BUN 6 mg/dl (9-23); CHLORIDE 94 mmol/L (98-107); CHOLESTEROL 132 mg/dL (<200); LDL CHOLESTEROL 69 mg/dL (9-159); POTASSIUM 4.1 mmol/L (3.4-5.1); SGPT/ALT 7 U/L (5-49); TOTAL PROTEIN 5.8 gm/dL (6.0-8.0); TRIGLYCERIDES 57 mg/dl (<150)
[2025-04-28 10:36] LABS: VITAMIN D, 25-HYDROXY 39.4 ng/mL (30-100)
== END | disposition home or self-care (01) ==
LOC: LAB 09:24
PROVIDERS: ATTEND Nurse Practitioner Family
DX: D50.9 Iron deficiency anemia, unspecified (principal); Z13.0 Encounter for screening for diseases of the blood and blood-forming organs and certain disorders involving the immune mechanism; Z13.29 Encounter for screening for other suspected endocrine disorder; Z13.1 Encounter for screening for diabetes mellitus; Z13.220 Encounter for screening for lipoid disorders

== ENCOUNTER → 2025-06-23 | Outpatient (CLI) | payer OTHER, MEDICAID ==
[~2025-06-23] MED LIST changes: +ASPIRIN ADULT L81 M2 PO; +POTASSIUM CHLO20 ME4 PO; +SODIUM CHLORI1000 M5 MC; +VANCO 1 GR1 GM/250 M IV
[2025-06-23 10:02] LABS: BASO # 0.1 10*3/uL (0.0-0.1); BASO % 1.0 % (0.0-1.0); EOS # 0.3 10*3/uL (0.0-0.4); EOS % 3.6 % (1.0-4.0); MEAN CELL VOLUME 84.9 fl (80.0-94.0); MEAN CORPUSCULAR HGB 26.9 pg (27.0-31.0); MEAN PLATELET VOLUME 9.7 fl (9.6-12.3); MONO # 0.5 10*3/uL (0.1-1.0); MONO % 6.5 % (3.0-9.0); NEUT # 5.5 10*3/uL (2.3-7.9); NEUT % 67.3 % (47.0-73.0); NUCLEATED RED BLOOD CELL 0.0 % (0.0-0.0); NUCLEATED RED BLOOD CELL 0.0 10*3/uL (0.0-0.0); PLATELET COUNT AUTOMATED 236 10*3/uL (130-400); RED CELL DISTRI WIDTH 15.0 % (0-14.5)
[2025-06-23 10:34] LABS: BUN 6 mg/dl (9-23)
== END | disposition home or self-care (01) ==
LOC: LAB 09:35
PROVIDERS: ATTEND Nurse Practitioner Family
DX: R00.1 Bradycardia, unspecified (principal); D64.9 Anemia, unspecified